=== PATIENT | male | born 1955 | race Caucasian/White ===

== ENCOUNTER → 2019-05-12 | Outpatient (CLI) | payer MEDICARE | END | disposition home or self-care (01) | LOC: LAB 14:10 → LAB SHORT 14:10 → LAB FUT 05-09 15:10 | DX: R10.9 Unspecified abdominal pain (principal) | CPT/HCPCS: 87338 ==

== ENCOUNTER → 2020-01-31 | Outpatient (CLI) | payer MEDICARE | END | disposition home or self-care (01) | LOC: LAB 18:32 → LAB SHORT 18:32 | DX: N39.0 Urinary tract infection, site not specified (principal) | CPT/HCPCS: 87086 ==

== ENCOUNTER 2020-09-09 00:24 | Day surgery (SDC) | payer MEDICARE | END 2020-09-09 22:57 | disposition home or self-care (01) | LOC: WOUND 00:24 | DX: E11.621 Type 2 diabetes mellitus with foot ulcer (principal); L97.415 Non-pressure chronic ulcer of right heel and midfoot with muscle involvement without evidence of necrosis; L97.422 Non-pressure chronic ulcer of left heel and midfoot with fat layer exposed; E11.59 Type 2 diabetes mellitus with other circulatory complications; E11.42 Type 2 diabetes mellitus with diabetic polyneuropathy; L03.115 Cellulitis of right lower limb | CPT/HCPCS: A9270; G0463 ==

== ENCOUNTER 2020-09-19 05:36 | Day surgery (SDC) | payer MEDICARE | END 2020-09-19 22:37 | disposition home or self-care (01) | LOC: WOUND 05:36 | DX: E11.621 Type 2 diabetes mellitus with foot ulcer (principal); L97.422 Non-pressure chronic ulcer of left heel and midfoot with fat layer exposed; L97.412 Non-pressure chronic ulcer of right heel and midfoot with fat layer exposed; E11.59 Type 2 diabetes mellitus with other circulatory complications; E11.42 Type 2 diabetes mellitus with diabetic polyneuropathy; S91.301D Unspecified open wound, right foot, subsequent encounter; X58.XXXD Exposure to other specified factors, subsequent encounter; L03.115 Cellulitis of right lower limb; I73.9 Peripheral vascular disease, unspecified; I87.2 Venous insufficiency (chronic) (peripheral) | CPT/HCPCS: 87071; 87075; 87205; A9270 ==

== ENCOUNTER 2020-09-23 00:39 | Day surgery (SDC) | payer MEDICARE | END 2020-09-23 22:58 | disposition home or self-care (01) | LOC: WOUND 00:39 | DX: E11.621 Type 2 diabetes mellitus with foot ulcer (principal); L97.415 Non-pressure chronic ulcer of right heel and midfoot with muscle involvement without evidence of necrosis; L97.429 Non-pressure chronic ulcer of left heel and midfoot with unspecified severity; E11.59 Type 2 diabetes mellitus with other circulatory complications; E11.42 Type 2 diabetes mellitus with diabetic polyneuropathy; S91.301D Unspecified open wound, right foot, subsequent encounter; X58.XXXD Exposure to other specified factors, subsequent encounter; L03.115 Cellulitis of right lower limb; I73.9 Peripheral vascular disease, unspecified; I87.2 Venous insufficiency (chronic) (peripheral) | CPT/HCPCS: A9270; G0463 ==

== ENCOUNTER 2020-09-30 01:06 | Day surgery (SDC) | payer MEDICARE | END 2020-09-30 23:13 | disposition home or self-care (01) | LOC: WOUND 01:06 | DX: E11.621 Type 2 diabetes mellitus with foot ulcer (principal); L97.412 Non-pressure chronic ulcer of right heel and midfoot with fat layer exposed; E11.59 Type 2 diabetes mellitus with other circulatory complications; E11.42 Type 2 diabetes mellitus with diabetic polyneuropathy; E11.51 Type 2 diabetes mellitus with diabetic peripheral angiopathy without gangrene; I87.2 Venous insufficiency (chronic) (peripheral); S91.301A Unspecified open wound, right foot, initial encounter; L03.115 Cellulitis of right lower limb | CPT/HCPCS: A9270 ==

== ENCOUNTER 2020-10-07 00:58 | Day surgery (SDC) | payer MEDICARE | END 2020-10-08 02:19 | disposition home or self-care (01) | LOC: WOUND 00:58 | DX: E11.621 Type 2 diabetes mellitus with foot ulcer (principal); L97.412 Non-pressure chronic ulcer of right heel and midfoot with fat layer exposed; E11.59 Type 2 diabetes mellitus with other circulatory complications; E11.42 Type 2 diabetes mellitus with diabetic polyneuropathy; S91.301D Unspecified open wound, right foot, subsequent encounter; X58.XXXD Exposure to other specified factors, subsequent encounter; L03.115 Cellulitis of right lower limb; I73.9 Peripheral vascular disease, unspecified; I87.2 Venous insufficiency (chronic) (peripheral) | CPT/HCPCS: A9270 ==

== ENCOUNTER 2020-10-14 00:50 | Day surgery (SDC) | payer MEDICARE | END 2020-10-14 23:33 | disposition home or self-care (01) | LOC: WOUND 00:50 | DX: E11.621 Type 2 diabetes mellitus with foot ulcer (principal); L97.415 Non-pressure chronic ulcer of right heel and midfoot with muscle involvement without evidence of necrosis; E11.59 Type 2 diabetes mellitus with other circulatory complications; E11.42 Type 2 diabetes mellitus with diabetic polyneuropathy; S91.301D Unspecified open wound, right foot, subsequent encounter; L03.115 Cellulitis of right lower limb; E11.51 Type 2 diabetes mellitus with diabetic peripheral angiopathy without gangrene; I87.2 Venous insufficiency (chronic) (peripheral) | CPT/HCPCS: A9270 ==

== ENCOUNTER 2020-10-28 07:00 | Day surgery (SDC) | payer MEDICARE | END 2020-10-28 23:00 | disposition home or self-care (01) | LOC: WOUND 07:00 | DX: E11.621 Type 2 diabetes mellitus with foot ulcer (principal); L97.412 Non-pressure chronic ulcer of right heel and midfoot with fat layer exposed; E11.59 Type 2 diabetes mellitus with other circulatory complications; E11.42 Type 2 diabetes mellitus with diabetic polyneuropathy; S91.301D Unspecified open wound, right foot, subsequent encounter; L03.115 Cellulitis of right lower limb; I73.9 Peripheral vascular disease, unspecified; I87.2 Venous insufficiency (chronic) (peripheral) ==

== ENCOUNTER 2020-11-11 02:51 | Day surgery (SDC) | payer MEDICARE | END 2020-11-11 23:03 | disposition home or self-care (01) | LOC: WOUND 02:51 | DX: E11.621 Type 2 diabetes mellitus with foot ulcer (principal); L97.412 Non-pressure chronic ulcer of right heel and midfoot with fat layer exposed; E11.59 Type 2 diabetes mellitus with other circulatory complications; E11.42 Type 2 diabetes mellitus with diabetic polyneuropathy; S91.301D Unspecified open wound, right foot, subsequent encounter; X58.XXXD Exposure to other specified factors, subsequent encounter; L03.115 Cellulitis of right lower limb; I73.9 Peripheral vascular disease, unspecified; I87.2 Venous insufficiency (chronic) (peripheral) | CPT/HCPCS: A9270 ==

== ENCOUNTER 2020-11-25 00:20 | Day surgery (SDC) | payer MEDICARE | END 2020-11-25 22:54 | disposition home or self-care (01) | LOC: WOUND 00:20 | DX: Z09 Encounter for follow-up examination after completed treatment for conditions other than malignant neoplasm (principal); Z86.31 Personal history of diabetic foot ulcer; E11.59 Type 2 diabetes mellitus with other circulatory complications; E11.42 Type 2 diabetes mellitus with diabetic polyneuropathy; E11.51 Type 2 diabetes mellitus with diabetic peripheral angiopathy without gangrene; L03.115 Cellulitis of right lower limb; I87.2 Venous insufficiency (chronic) (peripheral) | CPT/HCPCS: G0463 ==

== ENCOUNTER → 2020-11-28 | Outpatient (CLI) | payer MEDICARE ==
[2020-11-28 13:44] LABS: Albumin, Blood 3.4 g/dL (3.4-5.0); Anion Gap 8 mmol/L (6-16); Blood Urea Nitrogen 28 mg/dL (8-24); Bun/Creatinine Ratio 14.3 (12.0-20.0); CO2, Blood 24 mmol/L (21-32); Calcium, Blood 9.5 mg/dL (8.5-10.1); Chloride, Blood 106 mmol/L (98-108); Creatinine, Blood 1.96 mg/dL (0.60-1.20); Glomerular Filtration Rate 35 (60-); Glucose, Blood 199 mg/dL (70-99); Phosphorus, Blood 2.8 mg/dL (2.5-4.9); Potassium, Blood 4.1 mmol/L (3.5-5.5); Sodium, Blood 138 mmol/L (136-145)
== END | disposition home or self-care (01) ==
LOC: LAB 08:55 → LAB SHORT 08:55
PROVIDERS: Internal Medicine Nephrology
DX: N18.30 Chronic kidney disease, stage 3 unspecified (principal); D63.1 Anemia in chronic kidney disease
CPT/HCPCS: 36415; 80069; 85018

== ENCOUNTER → 2021-11-26 | Outpatient (CLI) | payer MEDICARE | END | disposition home or self-care (01) | LOC: LAB SHORT 12:00 → LAB 12:00 | DX: R30.0 Dysuria (principal) | CPT/HCPCS: 87077; 87086; 87186 ==

== ENCOUNTER → 2022-03-30 | Outpatient (CLI) | payer MEDICARE | END | disposition home or self-care (01) | LOC: LAB SHORT 12:00 → LAB 12:00 | DX: R30.0 Dysuria (principal) | CPT/HCPCS: 87086 ==

== ENCOUNTER 2024-11-02 06:32 | Inpatient (IN) | payer OTHER ==
[~2024-11-02] VITALS: Ht 193 cm; Wt 124.5 kg
[2024-11-02 06:47] LABS: pH Blood Venous 7.47 (7.34-7.37)
[2024-11-02 06:49] LABS: BASOPHILS ABSOLUTE AUTO 0.04 K/mm3 (0.00-0.23); BASOPHILS PERCENT AUTO 0 % (0-2); EOSINOPHILS ABSOLUTE AUTO 0.15 K/mm3 (0.00-0.68); EOSINOPHILS PERCENT AUTO 1 % (0-6); Hematocrit 40.1 % (37.0-53.0); Hemoglobin 13.4 g/dL (13.5-17.5); IMMATURE GRAN ABSOLUTE AUTO 0.09 K/mm3 (0.00-0.10); IMMATURE GRAN PERCENT AUTO 1 % (0-1); LYMPHOCYTES ABSOLUTE AUTO 2.72 K/mm3 (0.84-5.20); LYMPHOCYTES PERCENT AUTO 23 % (21-46); MONOCYTES ABSOLUTE AUTO 0.95 K/mm3 (0.16-1.47); MONOCYTES PERCENT AUTO 8 % (4-13); Mean Corpuscular HGB Conc 33.4 g/dL (31.5-36.5); Mean Corpuscular Volume 94 fL (80-100); NEUTROPHILS ABSOLUTE AUTO 8.03 K/mm3 (1.96-9.15); NEUTROPHILS PERCENT AUTO 67 % (41-73); NRBC ABSOLUTE 0.03 K/mm3 (0.00-0.02); NRBC Auto 0.3 /100 WBC (0.0-0.2); Platelet Count 190 K/mm3 (150-400); RDW Coefficient Variation 15.2 % (11.7-14.2); RDW Standard Deviation 51.6 fL (35.1-46.3)
[2024-11-02] MEDS ORDERED: Metoclopramide HCl 5MG / ML 2ML Vial IV ONE (06:55)
[2024-11-02] MEDS ORDERED: NS 1,000 ML IV SCH ×2 (06:55→08:05)
[2024-11-02 07:06] LABS: Alanine Aminotransfer (ALT/SGP 36.0 U/L (12-78); Albumin, Blood 3.3 g/dL (3.4-5.0); Albumin/Globulin Ratio 0.9 (0.8-1.8); Anion Gap 18.0 mmol/L (3-11); Aspartate Aminotrans (AST/SGOT 32.0 U/L (12-37); Bilirubin, Total 1.2 mg/dL (0.1-1.0); Blood Urea Nitrogen 42.0 mg/dL (8-24); CO2, Blood 20.0 mmol/L (21-32); Calcium, Blood 9.5 mg/dL (8.5-10.1); Chloride, Blood 106.0 mmol/L (98-108); Creatinine, Blood 4.14 mg/dL (0.60-1.20); Globulin, Blood 3.6 g/dL (2.2-4.0); Glucose, Blood 250.0 mg/dL (70-99); Potassium, Blood 4.8 mmol/L (3.5-5.5); Sodium, Blood 139.0 mmol/L (136-145); Total Protein, Blood 6.9 g/dL (6.4-8.2)
[2024-11-02] MEDS ORDERED: FentaNYL Citrate 50 MCG/ML 2 ML Injection IV ONE (07:30)
[2024-11-02 07:56] LABS: Influenza A, PCR NEGATIVE (NEGATIVE); Influenza B, PCR NEGATIVE (NEGATIVE); Resp Syncytial Virus, PCR NEGATIVE (NEGATIVE); SARS-Cov-2 (COVID-19) PCR, MMC NEGATIVE (NEGATIVE)
[2024-11-02] MEDS ORDERED: Ondansetron HCl 2 MG / ML 2ML Vial IV PRN (08:15)
[2024-11-02] MEDS ORDERED: HYDHCL25 PO (08:30)
[2024-11-02] MEDS ORDERED: OXYC10ER PO (08:32)
[2024-11-02] MEDS ORDERED: ALUMINUM H320 MG/5 M PO (08:32)
[2024-11-02] MEDS ORDERED: FREESTYLE LIBR1 EAC8 MC (08:32)
[2024-11-02] MEDS ORDERED: METPRE4 PO (08:33)
[2024-11-02] MEDS ORDERED: ALLO300 PO (08:33)
[2024-11-02] MEDS ORDERED: COLCHICINE0.6 MG PO (08:33)
[2024-11-02] MEDS ORDERED: INSULIN AS100 UNIT/8 SC (08:33)
[2024-11-02] MEDS ORDERED: TAMS.4ER PO (08:34)
[2024-11-02] MEDS ORDERED: FURO40 PO (08:34)
[2024-11-02] MEDS ORDERED: MELO7.5 PO (08:34)
[2024-11-02] MEDS ORDERED: METO50ER PO (08:34)
[2024-11-02] MEDS ORDERED: LOSA50 PO (08:35)
[2024-11-02] MEDS ORDERED: Insulin Regular 100 Unit/ML 1ML Dose SC ONE (09:00)
[2024-11-02] MEDS ORDERED: Enoxaparin 30 MG/0.3 ML SYR SC SCH (09:00)
[2024-11-02 09:34] LABS: C DIFFICILE DNA NEGATIVE (Negative)
[2024-11-02 11:33] VITALS: BP 134/103
[2024-11-02] MEDS ORDERED: Insulin Regular 100 UNIT/ML 10ML Vial SC SCH ×2 (12:00→21:00)
[2024-11-02 15:18] LABS: Campylobacter Sp Not Detected (NOT DETECT)
[2024-11-02 15:19] LABS: E. Coli O157 Not Detected (NOT DETECT); Enteroaggregative E. coli-EAEC Not Detected (NOT DETECT); Enteropathogenic E. coli-EPEC Not Detected (NOT DETECT); Enterotoxigenic E. coli-ETEC Not Detected (NOT DETECT); Salmonella Sp Not Detected (NOT DETECT); Shiga Toxin-prod E. coli-STEC Not Detected (NOT DETECT); Shigella/Enteroin E. coli-EIEC Not Detected (NOT DETECT); Vibrio Sp Not Detected (NOT DETECT)
[2024-11-02 15:33] VITALS: BP 141/76
[2024-11-02 19:17] VITALS: BP 142/50
--- NOTE | 2024-11-02 19:24 | NUR ---
END OF SHIFT SUMMARY: A&Ox4. PLEASANT AND COOPERATIVE WITH CARE. CALLS APPROPRIATELY AND IS ABLE TO ADVOCATE NEEDS EFFECTIVELY. CONTINENT OF BOWEL AND BLADDER; LBM TODAY. MULTIPLE LIQUID STOOLS SINCE ADMIT. GI PANEL AND C-DIFF NEGATIVE. CT SHOWS GASTROENTERITIS. AMBULATES INDEPENDENTLY c FWW @ BASELINE. MEDS WHOLE c FLUIDS. TOLERATING CLEAR LIQUID DIET FOR BOWEL REST. LR x2 LITERS GIVEN; THIRD LITER RUNNING @ 200mL/hr. GLUCOSE IMPROVING SINCE ADMIT. BED IN LOWEST POSITION, CALL LIGHT WITHIN REACH, ALL NEEDS MET. REPORT TO ONCOMING NURSE.
[2024-11-02] MEDS ORDERED: Insulin Glargine-Yfgn 100 Unit/mL 3 ML SYR SC SCH ×2 (21:00)
[2024-11-03 03:37] LABS: Source, Urine Clean Catch
[2024-11-03 03:42] VITALS: BP 116/82
[2024-11-03 04:11] LABS: Bilirubin, Urine Neg (Neg); Glucose Qualitative, Urine 1+ (Neg); Ketones, Urine Neg (Neg); Leukocyte Esterase, Urine Neg (Neg); Protein, Urine 2+ (Neg); Specific Gravity, Urine 1.015 (1.003-1.022); Urobilinogen, Urine NORM (Normal)
[2024-11-03 04:37] LABS: Color, Urine Yellow (P-Yellow)
[2024-11-03 04:38] LABS: Red Blood Cells, Urine 0-2 /hpf (0-2); White Blood Cells, Urine 0-2 /hpf (0-5)
[2024-11-03 05:38] LABS: BASOPHILS ABSOLUTE AUTO 0.03 K/mm3 (0.00-0.23); BASOPHILS PERCENT AUTO 1 % (0-2); EOSINOPHILS ABSOLUTE AUTO 0.65 K/mm3 (0.00-0.68); EOSINOPHILS PERCENT AUTO 10 % (0-6); Hematocrit 31.9 % (37.0-53.0); Hemoglobin 10.6 g/dL (13.5-17.5); IMMATURE GRAN ABSOLUTE AUTO 0.04 K/mm3 (0.00-0.10); IMMATURE GRAN PERCENT AUTO 1 % (0-1); LYMPHOCYTES ABSOLUTE AUTO 1.58 K/mm3 (0.84-5.20); LYMPHOCYTES PERCENT AUTO 25 % (21-46); MONOCYTES ABSOLUTE AUTO 0.78 K/mm3 (0.16-1.47); MONOCYTES PERCENT AUTO 12 % (4-13); Mean Corpuscular HGB Conc 33.2 g/dL (31.5-36.5); Mean Corpuscular Volume 96 fL (80-100); NEUTROPHILS ABSOLUTE AUTO 3.35 K/mm3 (1.96-9.15); NEUTROPHILS PERCENT AUTO 52 % (41-73); NRBC ABSOLUTE 0.00 K/mm3 (0.00-0.02); NRBC Auto 0.0 /100 WBC (0.0-0.2); Platelet Count 120 K/mm3 (150-400); RDW Coefficient Variation 15.4 % (11.7-14.2); RDW Standard Deviation 52.5 fL (35.1-46.3)
[2024-11-03 06:16] LABS: Alanine Aminotransfer (ALT/SGP 27.0 U/L (12-78); Albumin, Blood 2.3 g/dL (3.4-5.0); Albumin/Globulin Ratio 0.9 (0.8-1.8); Anion Gap 10.0 mmol/L (3-11); Aspartate Aminotrans (AST/SGOT 29.0 U/L (12-37); Bilirubin, Total 1.0 mg/dL (0.1-1.0); Blood Urea Nitrogen 30.0 mg/dL (8-24); CO2, Blood 22.0 mmol/L (21-32); Calcium, Blood 8.2 mg/dL (8.5-10.1); Chloride, Blood 112.0 mmol/L (98-108); Creatinine, Blood 3.46 mg/dL (0.60-1.20); Globulin, Blood 2.7 g/dL (2.2-4.0); Glucose, Blood 141.0 mg/dL (70-99); Potassium, Blood 3.4 mmol/L (3.5-5.5); Sodium, Blood 141.0 mmol/L (136-145); Total Protein, Blood 5.0 g/dL (6.4-8.2)
--- NOTE | 2024-11-03 06:38 | NUR ---
PT SLEPT INTERMITTENTLY DURING THE NIGHT. DENIES N/V, BUT WATERY DIARRHEA CONTINUES. PT STATES THE DIARRHEA EPISODES SEEM LESS INTENSE THAN THEY HAVE BEEN. PT OOB WITH FWW AND SBA- INCREASED WOB AND FATIGUE WHEN UP. IVF INFUSING PER ORDER. AT APPROX 0415, PT STATED HE FELT "WEIRD". NEURO CHECK WNL. BLOOD SUGAR CHECK WNL. PT STATES SENSATION OF "WEIRD" LESSENNED. BED IN LOWEST POSITION, CALL LIGHT WITHIN REACH, SIDERAILS UP X2.
[2024-11-03 07:22] VITALS: BP 104/64
[2024-11-03 15:03] VITALS: BP 129/81
--- NOTE | 2024-11-03 19:18 | NUR ---
assumed care of pt a/o x 4 vss no c/o pain, pt is uncomfortable and with a flat affect. pt GI tract still having issues with diarrhea and nausea. pt did higinio clr liquid diet without emesis, and had been requesting solid food. pt still feeling very discouraged about current condition
--- NOTE | 2024-11-03 19:21 | NUR ---
no change in pt condition, pt was able to higinio solid foods without emesis IVF LR infusing at 200ml. will cont to monitor, denies pain, no s/s of distress.
[2024-11-03 20:03] VITALS: BP 125/80
[2024-11-03] MEDS ORDERED: Morphine Sulfate 4 MG/1 ML Injection IV ONE (20:15)
[2024-11-04 03:22] VITALS: BP 133/83
--- NOTE | 2024-11-04 04:03 | NUR ---
SUMMARY: PT AOX4, COOPERATIVE. UP SBA W/FWW TO BATHROOM. REQUESTED IV PAIN MEDICATION FOR GENERALIZED PAIN AND BECAUSE HE STATES HE CANT KEEP PILLS DOWN. PT WAS CHANGED OVER FROM CLD TO RENAL DIET TODAY. ABLE TO TAKE ONE ORAL PILL AT BEDTIME WITH NO COMPLAINTS AND GIVEN PRN MORPHINE ONE TIME PER VETERINARY SURGEON PROVIDER. PT SLEEPING COMFORTABLY OVERNIGHT. NO BMS BUT VOIDING APPROPRIATELY. PT ABLE TO TURN SELF IN BED AND USE CALL LIGHT APPROPRIATELY.
[2024-11-04 05:39] LABS: BASOPHILS ABSOLUTE AUTO 0.01 K/mm3 (0.00-0.23); BASOPHILS PERCENT AUTO 0 % (0-2); EOSINOPHILS ABSOLUTE AUTO 0.70 K/mm3 (0.00-0.68); EOSINOPHILS PERCENT AUTO 15 % (0-6); Hematocrit 32.1 % (37.0-53.0); Hemoglobin 10.5 g/dL (13.5-17.5); IMMATURE GRAN ABSOLUTE AUTO 0.04 K/mm3 (0.00-0.10); IMMATURE GRAN PERCENT AUTO 1 % (0-1); LYMPHOCYTES ABSOLUTE AUTO 1.48 K/mm3 (0.84-5.20); LYMPHOCYTES PERCENT AUTO 31 % (21-46); MONOCYTES ABSOLUTE AUTO 0.51 K/mm3 (0.16-1.47); MONOCYTES PERCENT AUTO 11 % (4-13); Mean Corpuscular HGB Conc 32.7 g/dL (31.5-36.5); Mean Corpuscular Volume 96 fL (80-100); NEUTROPHILS ABSOLUTE AUTO 2.06 K/mm3 (1.96-9.15); NEUTROPHILS PERCENT AUTO 43 % (41-73); NRBC ABSOLUTE 0.00 K/mm3 (0.00-0.02); NRBC Auto 0.0 /100 WBC (0.0-0.2); Platelet Count 111 K/mm3 (150-400); RDW Coefficient Variation 15.8 % (11.7-14.2); RDW Standard Deviation 54.5 fL (35.1-46.3)
[2024-11-04 06:03] LABS: Anion Gap 8.0 mmol/L (3-11); Blood Urea Nitrogen 26.0 mg/dL (8-24); CO2, Blood 25.0 mmol/L (21-32); Calcium, Blood 8.2 mg/dL (8.5-10.1); Chloride, Blood 111.0 mmol/L (98-108); Creatinine, Blood 3.08 mg/dL (0.60-1.20); Glucose, Blood 108.0 mg/dL (70-99); Potassium, Blood 3.6 mmol/L (3.5-5.5); Sodium, Blood 140.0 mmol/L (136-145)
[2024-11-04 07:20] VITALS: BP 125/81
[2024-11-04 10:57] LABS: Thyroid Stimulating Hormone 1.53 uIU/mL (0.360-4.800)
[2024-11-04] MEDS ORDERED: Insulin Human Lispro 100 Units/ML 3ML Syringe SC SCH (11:30)
[2024-11-04 15:41] VITALS: BP 112/69
[2024-11-04 19:08] VITALS: BP 126/71
--- NOTE | 2024-11-04 19:16 | NUR ---
assumed care of pt pt a/o today but still in some distress upset stomach and an overwhelming feeling of discomfort. pt was enc to repostion and move in bed, pt able to higinio breakfast and lunch. Physical therapy in with pt today, and noted that pt would be needing possible SNF for rehab. pt up in chair new iv placed via ultrasound.
[2024-11-04 23:52] VITALS: BP 123/78
--- NOTE | 2024-11-05 00:33 | NUR ---
THIS RN CALLED PROVIDER REGARDING PATIENTS COMPLAINT OF CHEST PAIN AND LEFT SIDED PAIN TO BODY. PROVIDER ORDERED AN EKG. ICU CHARGE CAME TO ASSESS PT. EKG COMPLETED AND COMPARED WITH PRIOR. PT WAS STARTED ON TELEMETRY AT BEGINNING OF SHIFT DUE TO TACHYCARDIA. NO CALLS FROM TELEMETRY OTHER THAN WHEN PT GOT UP TO USE BATHROOM AND PULSE INCREASED TO 130 AND THEN RETURNED WHEN PATIENT WAS BACK IN BED. PT GIVEN TYLENOL FOR PAIN AT THIS TIME. STATES IT IS SLOWLY DECREASING IN INTENSITY NOW. LABS DRAWN. PROVIDER STATES THEY WOULD POSSIBLY DO AN ECHO IN THE MORNING AFTER COMING TO ASSESS THE PATIENT.
--- NOTE | 2024-11-05 02:28 | NUR ---
PATIENTS BNP CAME BACK ELEVATED. PROVIDER NOTIFIED NO NEW ORDERS AT THIS TIME.
[2024-11-05 02:50] LABS: BASOPHILS ABSOLUTE AUTO 0.01 K/mm3 (0.00-0.23); BASOPHILS PERCENT AUTO 0 % (0-2); EOSINOPHILS ABSOLUTE AUTO 0.64 K/mm3 (0.00-0.68); EOSINOPHILS PERCENT AUTO 13 % (0-6); Hematocrit 32.0 % (37.0-53.0); Hemoglobin 10.4 g/dL (13.5-17.5); IMMATURE GRAN ABSOLUTE AUTO 0.05 K/mm3 (0.00-0.10); IMMATURE GRAN PERCENT AUTO 1 % (0-1); LYMPHOCYTES ABSOLUTE AUTO 1.57 K/mm3 (0.84-5.20); LYMPHOCYTES PERCENT AUTO 31 % (21-46); MONOCYTES ABSOLUTE AUTO 0.61 K/mm3 (0.16-1.47); MONOCYTES PERCENT AUTO 12 % (4-13); Mean Corpuscular HGB Conc 32.5 g/dL (31.5-36.5); Mean Corpuscular Volume 96 fL (80-100); NEUTROPHILS ABSOLUTE AUTO 2.21 K/mm3 (1.96-9.15); NEUTROPHILS PERCENT AUTO 43 % (41-73); NRBC ABSOLUTE 0.00 K/mm3 (0.00-0.02); NRBC Auto 0.0 /100 WBC (0.0-0.2); Platelet Count 105 K/mm3 (150-400); RDW Coefficient Variation 15.5 % (11.7-14.2); RDW Standard Deviation 53.1 fL (35.1-46.3)
[2024-11-05 03:07] LABS: Alanine Aminotransfer (ALT/SGP 28.0 U/L (12-78); Albumin, Blood 2.3 g/dL (3.4-5.0); Albumin/Globulin Ratio 0.8 (0.8-1.8); Anion Gap 11.0 mmol/L (3-11); Aspartate Aminotrans (AST/SGOT 24.0 U/L (12-37); Bilirubin, Total 0.7 mg/dL (0.1-1.0); Blood Urea Nitrogen 24.0 mg/dL (8-24); CO2, Blood 24.0 mmol/L (21-32); Calcium, Blood 8.0 mg/dL (8.5-10.1); Chloride, Blood 110.0 mmol/L (98-108); Creatinine, Blood 2.8 mg/dL (0.60-1.20); Globulin, Blood 2.8 g/dL (2.2-4.0); Glucose, Blood 141.0 mg/dL (70-99); Potassium, Blood 3.8 mmol/L (3.5-5.5); Sodium, Blood 141.0 mmol/L (136-145); Total Protein, Blood 5.1 g/dL (6.4-8.2)
[2024-11-05 04:08] VITALS: BP 132/77
[2024-11-05 07:42] VITALS: BP 115/78
[2024-11-05] MEDS ORDERED: Enoxaparin 40 MG/0.4 ML SYR SC SCH (09:00)
[2024-11-05 11:22] VITALS: BP 118/72
[2024-11-05] MEDS ORDERED: Insulin Human Lispro 100 Units/ML 3ML Syringe SC SCH (11:30)
[2024-11-05 15:20] VITALS: BP 134/81
--- NOTE | 2024-11-05 16:22 | NUR ---
ASSUMED CARE OF PT. PT IS A/O X4 DOING A LITTLE BETTER TODAY PTIS NOW ON TELE AND RUNNING TACHY BETWEEN 80 TO 130 WHILE AMBULATING. PT COMPLAINTS OF GENERALIZED WEAKNESS AND HEAVINESS, IS AWARE AND WILL BE RUNNING ADDITIONAL TEST. ECHO TO BE DONE THIS EVENING. PT CONT TO AMB WITH FWW AND ONE PERSON ASSIST. CALLS APPROPRIATLY
[2024-11-05] MEDS ORDERED: Insulin Glargine-Yfgn 100 Unit/mL 3 ML SYR SC SCH (18:00)
[2024-11-05 19:24] VITALS: BP 127/52
[2024-11-05 22:50] VITALS: BP 142/85
[2024-11-06 03:55] VITALS: BP 133/89
--- NOTE | 2024-11-06 05:00 | NUR ---
SHIFT SUMMARY PATIENT IS ALERT AND ORIENTED. PATIENT HAS HAD NO ACUTE EVENTS THIS SHIFT. VITAL SIGNS REVIEWED. PATIENT HAS REPORTED PAIN THIS SHIFT. PATIENT HAS HAD TACHYCARDIA ON TELE MONITORING WHEN AMBULATING. PATIENT HAS HAD NO COMPLAINTS OF SOB, NAUSEA, OR VOMITTING. BED IN LOCKED AND LOWEST POSITION. CALL LIGHT IN PLACE.
[2024-11-06 06:15] LABS: BASOPHILS ABSOLUTE AUTO 0.01 K/mm3 (0.00-0.23); BASOPHILS PERCENT AUTO 0 % (0-2); EOSINOPHILS ABSOLUTE AUTO 0.64 K/mm3 (0.00-0.68); EOSINOPHILS PERCENT AUTO 13 % (0-6); Hematocrit 33.6 % (37.0-53.0); Hemoglobin 10.6 g/dL (13.5-17.5); IMMATURE GRAN ABSOLUTE AUTO 0.04 K/mm3 (0.00-0.10); IMMATURE GRAN PERCENT AUTO 1 % (0-1); LYMPHOCYTES ABSOLUTE AUTO 1.75 K/mm3 (0.84-5.20); LYMPHOCYTES PERCENT AUTO 34 % (21-46); MONOCYTES ABSOLUTE AUTO 0.70 K/mm3 (0.16-1.47); MONOCYTES PERCENT AUTO 14 % (4-13); Mean Corpuscular HGB Conc 31.5 g/dL (31.5-36.5); Mean Corpuscular Volume 99 fL (80-100); NEUTROPHILS ABSOLUTE AUTO 1.94 K/mm3 (1.96-9.15); NEUTROPHILS PERCENT AUTO 38 % (41-73); NRBC ABSOLUTE 0.00 K/mm3 (0.00-0.02); NRBC Auto 0.0 /100 WBC (0.0-0.2); RDW Coefficient Variation 15.9 % (11.7-14.2); RDW Standard Deviation 56.8 fL (35.1-46.3)
[2024-11-06 06:34] LABS: Alanine Aminotransfer (ALT/SGP 30.0 U/L (12-78); Albumin, Blood 2.3 g/dL (3.4-5.0); Albumin/Globulin Ratio 0.8 (0.8-1.8); Anion Gap 8.0 mmol/L (3-11); Aspartate Aminotrans (AST/SGOT 32.0 U/L (12-37); Bilirubin, Total 1.0 mg/dL (0.1-1.0); Blood Urea Nitrogen 21.0 mg/dL (8-24); CO2, Blood 22.0 mmol/L (21-32); Calcium, Blood 8.0 mg/dL (8.5-10.1); Chloride, Blood 110.0 mmol/L (98-108); Creatinine, Blood 2.39 mg/dL (0.60-1.20); Globulin, Blood 3.0 g/dL (2.2-4.0); Glucose, Blood 124.0 mg/dL (70-99); Potassium, Blood 4.3 mmol/L (3.5-5.5); Sodium, Blood 136.0 mmol/L (136-145); Total Protein, Blood 5.3 g/dL (6.4-8.2)
[2024-11-06 06:50] LABS: Platelet Count 93 K/mm3 (150-400)
[2024-11-06 08:00] VITALS: BP 128/87
[2024-11-06 12:19] VITALS: BP 131/80
[2024-11-06 16:33] VITALS: BP 129/56
--- NOTE | 2024-11-06 16:47 | NUR ---
SHIFT SUMMARY PT WORKED WITH PHYSICAL, SPEECH, AND OCCUPATIONAL THERPAY TODAY. PT UP TO RECLINER FOR MOST OF THE DAY. TOLERATING AMBULATION TO THE BATHROOM AND BACK. AWAITING PLACEMENT AT [facility] PER DC PLANNING. PT TELEMETRY RUNNING SINUS TACH T/O THE DAY. RUNNING IN THE 120S AT REST AND INCREASES TO 130-140S WITH EXERTION. DR ROSALES NOTIFIED OF THIS RATE DURING ROUNDS. NO OTHER ACUTE CHANGES IN ASSESSMENT AT THIS TIME. VS REVIEWED. CALL LIGHT IN REACH. PLAN TO TRANSFER TO ROOM 327 PRIOR TO SHIFT CHANGE.
--- NOTE | 2024-11-06 17:18 | NUR ---
TRANSFER TO 327. REPORT GIVEN TO YOGI MARK.
--- NOTE | 2024-11-06 18:09 | NUR ---
SHIFT SUMMARY PT TRANSFERED FROM 346 THIS SHIFT TO ROOM 327. PT NOTED TO BE A&OX4 AND MAKES NEEDS KNOWN, PT IS A SBA WITH TRANSFERS. PT CONT WITH TELE NOTED TO BE SINUS TACH IN 120S AT REST.
[2024-11-06 19:48] VITALS: BP 174/88
[2024-11-07] VITALS (10 sets, daily range): BP systolic 74–168; BP diastolic 51–93
[2024-11-07 05:30] LABS: BASOPHILS ABSOLUTE AUTO 0.01 K/mm3 (0.00-0.23); BASOPHILS PERCENT AUTO 0 % (0-2); EOSINOPHILS ABSOLUTE AUTO 0.70 K/mm3 (0.00-0.68); EOSINOPHILS PERCENT AUTO 12 % (0-6); Hematocrit 32.2 % (37.0-53.0); Hemoglobin 10.6 g/dL (13.5-17.5); IMMATURE GRAN ABSOLUTE AUTO 0.04 K/mm3 (0.00-0.10); IMMATURE GRAN PERCENT AUTO 1 % (0-1); LYMPHOCYTES ABSOLUTE AUTO 1.98 K/mm3 (0.84-5.20); LYMPHOCYTES PERCENT AUTO 33 % (21-46); MONOCYTES ABSOLUTE AUTO 0.92 K/mm3 (0.16-1.47); MONOCYTES PERCENT AUTO 15 % (4-13); Mean Corpuscular HGB Conc 32.9 g/dL (31.5-36.5); Mean Corpuscular Volume 96 fL (80-100); NEUTROPHILS ABSOLUTE AUTO 2.43 K/mm3 (1.96-9.15); NEUTROPHILS PERCENT AUTO 40 % (41-73); NRBC ABSOLUTE 0.00 K/mm3 (0.00-0.02); NRBC Auto 0.0 /100 WBC (0.0-0.2); Platelet Count 121 K/mm3 (150-400); RDW Coefficient Variation 15.8 % (11.7-14.2); RDW Standard Deviation 55.1 fL (35.1-46.3)
[2024-11-07 05:57] LABS: Alanine Aminotransfer (ALT/SGP 30.0 U/L (12-78); Albumin, Blood 2.5 g/dL (3.4-5.0); Albumin/Globulin Ratio 0.8 (0.8-1.8); Anion Gap 6.0 mmol/L (3-11); Aspartate Aminotrans (AST/SGOT 23.0 U/L (12-37); Bilirubin, Total 1.1 mg/dL (0.1-1.0); Blood Urea Nitrogen 25.0 mg/dL (8-24); CO2, Blood 27.0 mmol/L (21-32); Calcium, Blood 8.4 mg/dL (8.5-10.1); Chloride, Blood 107.0 mmol/L (98-108); Creatinine, Blood 2.59 mg/dL (0.60-1.20); Globulin, Blood 3.0 g/dL (2.2-4.0); Glucose, Blood 148.0 mg/dL (70-99); Potassium, Blood 4.0 mmol/L (3.5-5.5); Sodium, Blood 136.0 mmol/L (136-145); Total Protein, Blood 5.5 g/dL (6.4-8.2)
--- NOTE | 2024-11-07 06:18 | NUR ---
Shift Summary Pt on tele, SR to ST, tachy up to 160s with ambulation and activity. Pt c/o of bad bloating/gas abdominal discomfort. Pt states scheduled famotidine did help with abd discomfort. He is 1 assist with FWW to BR. Pt AOx4, calls appropriatly. Slept t/o most of the night.
[2024-11-07] MEDS ORDERED: Metoprolol Tartrate 1 MG/ML 5 ML VIAL IV ONE (10:00)
[2024-11-07] MEDS ORDERED: Metoprolol Tartrate 1 MG/ML 5 ML VIAL IV PRN (10:00)
--- NOTE | 2024-11-07 12:42 | NUR ---
1155 NOTIFIED BY JOSE MANUEL [employer] CONSULTANT SARAH PATIENT HR 210-220. IMMEDIATELY TO PTS ROOM, PT RETURNING FROM AMBULATING TO RESTROOM AND IS STANDING UP PERFORMING ARM EXCERCISES WITH OT.BP CHECKED AND IS 74/51 THOUGH BLOOD PRESSURE CUFF HAD PUMPED UP AND RELEASED 3 TIMES SEARCHING FOR BP SO ACCURACY OF THIS BP UNKNOWN. PT REPORTS SLIGHT CHEST PRESSURE AND HAS A HEADACHE. PT ASSISTED TO BED WITH 2 PERSON AND GAIT BELT. VS RECHECKED ON OPPOSITE LOWER ARM AND IS 141/74. DR ROPER PRESENT AT BEDSIDE AND AWARE OF CHANGE IN PSTIENT VITAL SIGNS. HR CURRENTLY 11. PER TELE HR WAS 210-220 FOR A PERIOD OF [address] ROPER NEW ORDERS WILL BE PLACED. PT BEDSIDE BHAVANI CASTRO NOTIFIED OF CHANGE IN PATIENT STATUS
[2024-11-07 15:34] LABS: Anion Gap 9.0 mmol/L (3-11); Blood Urea Nitrogen 25.0 mg/dL (8-24); CO2, Blood 25.0 mmol/L (21-32); Calcium, Blood 8.7 mg/dL (8.5-10.1); Chloride, Blood 105.0 mmol/L (98-108); Creatinine, Blood 2.4 mg/dL (0.60-1.20); Glucose, Blood 140.0 mg/dL (70-99); Potassium, Blood 3.7 mmol/L (3.5-5.5); Sodium, Blood 135.0 mmol/L (136-145)
--- NOTE | 2024-11-07 18:11 | NUR ---
DAY SUMMARY A&OX4, BP STABLE, HR HAS BEEN ST T/O SHIFT (110'S), 4 EPISODES OF SUSTAINING IN LOW 200'S, HOME DOSE OF METOP STARTED THIS SHIFT, PT HAS BEEN BEDRESTING USING URINAL AT BEDSIDE, MAINTAINING HR IN 110'S, MEDICATED PER JUN FOR PAIN, BEDRESTING AT THIS TIME, CALL LIGHT IN REACH, WILL CONT TO MONITOR.
[2024-11-08 03:03] VITALS: BP 131/80
[2024-11-08 04:23] LABS: BASOPHILS ABSOLUTE AUTO 0.02 K/mm3 (0.00-0.23); BASOPHILS PERCENT AUTO 0 % (0-2); EOSINOPHILS ABSOLUTE AUTO 0.72 K/mm3 (0.00-0.68); EOSINOPHILS PERCENT AUTO 13 % (0-6); Hematocrit 30.9 % (37.0-53.0); Hemoglobin 10.1 g/dL (13.5-17.5); IMMATURE GRAN ABSOLUTE AUTO 0.03 K/mm3 (0.00-0.10); IMMATURE GRAN PERCENT AUTO 1 % (0-1); LYMPHOCYTES ABSOLUTE AUTO 2.13 K/mm3 (0.84-5.20); LYMPHOCYTES PERCENT AUTO 38 % (21-46); MONOCYTES ABSOLUTE AUTO 0.91 K/mm3 (0.16-1.47); MONOCYTES PERCENT AUTO 16 % (4-13); Mean Corpuscular HGB Conc 32.7 g/dL (31.5-36.5); Mean Corpuscular Volume 96 fL (80-100); NEUTROPHILS ABSOLUTE AUTO 1.85 K/mm3 (1.96-9.15); NEUTROPHILS PERCENT AUTO 33 % (41-73); NRBC ABSOLUTE 0.00 K/mm3 (0.00-0.02); NRBC Auto 0.0 /100 WBC (0.0-0.2); Platelet Count 129 K/mm3 (150-400); RDW Coefficient Variation 15.8 % (11.7-14.2); RDW Standard Deviation 54.2 fL (35.1-46.3)
[2024-11-08 04:38] LABS: Anion Gap 9.0 mmol/L (3-11); Blood Urea Nitrogen 26.0 mg/dL (8-24); CO2, Blood 25.0 mmol/L (21-32); Calcium, Blood 8.4 mg/dL (8.5-10.1); Chloride, Blood 104.0 mmol/L (98-108); Creatinine, Blood 2.55 mg/dL (0.60-1.20); Glucose, Blood 210.0 mg/dL (70-99); Potassium, Blood 3.7 mmol/L (3.5-5.5); Sodium, Blood 134.0 mmol/L (136-145)
--- NOTE | 2024-11-08 05:10 | NUR ---
NIGHT SUMMARY: PT AOX4, ON RA, USING URINAL AT BEDSIDE OVERNIGHT. PT RECEIVED PAIN MEDICATION X2 PER EMAR. HYDROCORTISONE CREAM WAS ORDERED THIS AM PRN TWICE A DAY DUE TO ITCHING. NO CALLS FROM CHANNEL DEVELOPMENT MANAGER OVERNIGHT. CALL LIGHT WITHIN REACH AND BED IN LOW POSITION.
[2024-11-08 08:40] VITALS: BP 108/72
[2024-11-08 14:42] LABS: Anion Gap 9.0 mmol/L (3-11); Blood Urea Nitrogen 28.0 mg/dL (8-24); CO2, Blood 26.0 mmol/L (21-32); Calcium, Blood 8.5 mg/dL (8.5-10.1); Chloride, Blood 105.0 mmol/L (98-108); Creatinine, Blood 2.62 mg/dL (0.60-1.20); Glucose, Blood 106.0 mg/dL (70-99); Potassium, Blood 3.6 mmol/L (3.5-5.5); Sodium, Blood 136.0 mmol/L (136-145)
--- NOTE | 2024-11-08 15:24 | NUR ---
DAY SUMMARY VSS, HR STABLE ON TELE, PT CONTINUES TO C/O PAIN/DIFFICULTY WITH STARTING URINE STREAM, FLOMAX DOSE INCREASED THIS SHIFT, BEDRESTING AT THIS TIME, CALL LIGHT IN REACH, WILL CONT TO MONITOR.
[2024-11-08 16:51] VITALS: BP 114/65
[2024-11-08 19:15] VITALS: BP 137/112
[2024-11-08 23:13] VITALS: BP 133/112
[2024-11-09] VITALS (10 sets, daily range): BP systolic 91–114; BP diastolic 53–91
--- NOTE | 2024-11-09 05:21 | NUR ---
NIGHT SUMMARY: BED BATH GIVEN AND LINENS CHANGED. PT SAT IN CHAIR WHILE BEDDING WAS CHANGED AND THERE WAS NO CALL FROM TELEMETRY ABOUT INCREASED HEART RATE. PT USING URINAL AT BEDSIDE. PT RECEIVED OXYCODONE X2 PER EMAR, DOSE INCREASED OVERNIGHT. TYLENOL RECEIVED X2. BED IN LOW POSITION AND CALL LIGHT WITHIN REACH.
[2024-11-09 06:16] LABS: Anion Gap 11.0 mmol/L (3-11); Blood Urea Nitrogen 35.0 mg/dL (8-24); CO2, Blood 24.0 mmol/L (21-32); Calcium, Blood 8.3 mg/dL (8.5-10.1); Chloride, Blood 102.0 mmol/L (98-108); Creatinine, Blood 2.9 mg/dL (0.60-1.20); Glucose, Blood 119.0 mg/dL (70-99); Potassium, Blood 4.1 mmol/L (3.5-5.5); Sodium, Blood 133.0 mmol/L (136-145)
--- NOTE | 2024-11-09 18:44 | NUR ---
DAY SUMMARY BP'S SOFT THIS AM, UNTIL NOON VS (LAST BP 114/70 @1700), MEDICATED FOR PAIN X1, UP TO CHAIR MOST OF SHIFT, WILL CONT TO MONITOR
[2024-11-09] MEDS ORDERED: Polyethylene Glycol 3350 17 gm PO ONE (20:55)
[2024-11-10 03:14] VITALS: BP 101/53
--- NOTE | 2024-11-10 04:50 | NUR ---
FOOD COUNTER ATTENDANT: PT AOX4 BUT GETTING SLIGHTLY CONFUSED ABOUT TIME OF DAY. PT HAS BEEN UP TO BATHROOM AND BACK X2 THIS SHIFT. SLIGHTLY UNSTEADY GAIT, 1 ASSIST W/FWW. ABLE TO HAVE SMALL BOWEL MOVEMENT. MIRALAX STARTED LAST EVENING AND ORDERED FOR DAILY PER PROVIDER. PAIN MEDS GIVEN PER EMAR. CALL LIGHT WITHIN REACH, ABLE TO MAKE NEEDS KNOWN.
[2024-11-10 06:45] LABS: BASOPHILS ABSOLUTE AUTO 0.02 K/mm3 (0.00-0.23); BASOPHILS PERCENT AUTO 0 % (0-2); EOSINOPHILS ABSOLUTE AUTO 0.68 K/mm3 (0.00-0.68); EOSINOPHILS PERCENT AUTO 14 % (0-6); Hematocrit 28.6 % (37.0-53.0); Hemoglobin 9.4 g/dL (13.5-17.5); IMMATURE GRAN ABSOLUTE AUTO 0.03 K/mm3 (0.00-0.10); IMMATURE GRAN PERCENT AUTO 1 % (0-1); LYMPHOCYTES ABSOLUTE AUTO 1.75 K/mm3 (0.84-5.20); LYMPHOCYTES PERCENT AUTO 36 % (21-46); MONOCYTES ABSOLUTE AUTO 0.72 K/mm3 (0.16-1.47); MONOCYTES PERCENT AUTO 15 % (4-13); Mean Corpuscular HGB Conc 32.9 g/dL (31.5-36.5); Mean Corpuscular Volume 95 fL (80-100); NEUTROPHILS ABSOLUTE AUTO 1.72 K/mm3 (1.96-9.15); NEUTROPHILS PERCENT AUTO 35 % (41-73); NRBC ABSOLUTE 0.00 K/mm3 (0.00-0.02); NRBC Auto 0.0 /100 WBC (0.0-0.2); Platelet Count 146 K/mm3 (150-400); RDW Coefficient Variation 15.3 % (11.7-14.2); RDW Standard Deviation 53.1 fL (35.1-46.3)
[2024-11-10 07:04] LABS: Albumin, Blood 2.2 g/dL (3.4-5.0); Anion Gap 8 mmol/L (3-11); Blood Urea Nitrogen 39 mg/dL (8-24); CO2, Blood 26 mmol/L (21-32); Calcium, Blood 8.4 mg/dL (8.5-10.1); Chloride, Blood 104 mmol/L (98-108); Creatinine, Blood 2.74 mg/dL (0.60-1.20); Glucose, Blood 141 mg/dL (70-99); Phosphorus, Blood 4.3 mg/dL (2.5-4.9); Potassium, Blood 3.9 mmol/L (3.5-5.5); Sodium, Blood 134 mmol/L (136-145)
[2024-11-10 07:09] VITALS: BP 144/119
[2024-11-10] MEDS ORDERED: Polyethylene Glycol 3350 17 gm PO SCH (09:00)
[2024-11-10 11:33] VITALS: BP 114/69
[2024-11-10 15:47] VITALS: BP 120/108
[2024-11-10 15:55] VITALS: BP 102/55
--- NOTE | 2024-11-10 17:43 | NUR ---
SHIFT SUMMARY: PATIENT MEDICATED FOR GENERALIZED PAIN PER EMANahomi abdi MOD EFFECT. PATIENT TELE DC'D PER ORDER. PATIENT HAD ONE LARGE BROWN BM THIS SHIFT. PATIENT HAS ORDER Q8 BLADDER SCAN. PATIENT WAS BLADDER SCAN AT 1055 c 99 MLS RETENTION POST VOID. AT 1802 BLADDER SCAN 604 MLS IN BLADDER. PATIENT ATTEMPTED TO USE URINAL BUT NOTHING COMING OUT. PATIENT STATES " I DON'T FEEL LIKE I HAVE TO URINATE RIGHT NOW, BUT I WILL TRY AGAIN AFTER I EAT MY DINNER." NOTIFIED DR. OSCAR abdi THIS CONCERN. PER DR. MOORE TO [facility] AND TRIED AGAIN IN COUPLE OF HOURS. PATIENT A/OX4, PLEASANT AND COOPERATIVE c CARE, CALLS APPROPRIATELY AND ABLE TO MAKE NEEDS KNOWN. VITAL SIGNS REVIEWED. CALL LIGHT IN REACH.
[2024-11-10 19:50] VITALS: BP 111/89
[2024-11-11 02:59] VITALS: BP 122/64
--- NOTE | 2024-11-11 03:01 | NUR ---
SHIFT SUMMARY NO ACUTE EVENTS DURING THIS SHIFT. PT VOIDING WELL IN THE RESTROOM. BLADDER SCAN @2014 SHOWING 0MLS POST-VOID. 1-PERSON ASSIST WITH FWW AND GB TO THE RESTROOM. PT IS WEAK, UNSTEADY GAIT. MEDICATED PER EMAR FOR C/O 6-10/26 ALL OVER BODY PAIN. +2 EDEMA LE'S, REDDNESS NOTED. BM DURING THIS SHIFT. PT REPORTS EXCITED TO D/C TO [facility] TODAY. BED AT THE LOWEST POSITION, CALL LIGHT W/I REACH. PT IS ABLE TO MAKE HIS NEEDS KNOWN AND IS COOPERATIVE WITH CARE.
[2024-11-11 06:08] LABS: BASOPHILS ABSOLUTE AUTO 0.01 K/mm3 (0.00-0.23); BASOPHILS PERCENT AUTO 0 % (0-2); EOSINOPHILS ABSOLUTE AUTO 0.55 K/mm3 (0.00-0.68); EOSINOPHILS PERCENT AUTO 12 % (0-6); Hematocrit 28.7 % (37.0-53.0); Hemoglobin 9.5 g/dL (13.5-17.5); IMMATURE GRAN ABSOLUTE AUTO 0.03 K/mm3 (0.00-0.10); IMMATURE GRAN PERCENT AUTO 1 % (0-1); LYMPHOCYTES ABSOLUTE AUTO 1.77 K/mm3 (0.84-5.20); LYMPHOCYTES PERCENT AUTO 39 % (21-46); MONOCYTES ABSOLUTE AUTO 0.66 K/mm3 (0.16-1.47); MONOCYTES PERCENT AUTO 15 % (4-13); Mean Corpuscular HGB Conc 33.1 g/dL (31.5-36.5); Mean Corpuscular Volume 95 fL (80-100); NEUTROPHILS ABSOLUTE AUTO 1.51 K/mm3 (1.96-9.15); NEUTROPHILS PERCENT AUTO 33 % (41-73); NRBC ABSOLUTE 0.00 K/mm3 (0.00-0.02); NRBC Auto 0.0 /100 WBC (0.0-0.2); Platelet Count 160 K/mm3 (150-400); RDW Coefficient Variation 15.1 % (11.7-14.2); RDW Standard Deviation 52.5 fL (35.1-46.3)
[2024-11-11 06:46] LABS: Albumin, Blood 2.3 g/dL (3.4-5.0); Anion Gap 7 mmol/L (3-11); Blood Urea Nitrogen 39 mg/dL (8-24); CO2, Blood 26 mmol/L (21-32); Calcium, Blood 8.3 mg/dL (8.5-10.1); Chloride, Blood 105 mmol/L (98-108); Creatinine, Blood 2.58 mg/dL (0.60-1.20); Glucose, Blood 126 mg/dL (70-99); Phosphorus, Blood 3.7 mg/dL (2.5-4.9); Potassium, Blood 3.8 mmol/L (3.5-5.5); Sodium, Blood 134 mmol/L (136-145)
[2024-11-11 07:50] VITALS: BP 130/73
[2024-11-11] MEDS ORDERED: MIRALAX17 GM PO (11:23)
[2024-11-11] MEDS ORDERED: SENN187 PO (11:24)
[2024-11-11] MEDS ORDERED: PREG25 PO (11:25)
--- NOTE | 2024-11-11 12:36 | NUR ---
REPORT CALLED TO KATARZYNA NURSE. AWAITING TRANSPORTATION.
--- NOTE | 2024-11-11 14:00 | NUR ---
PT DISCHARGED TO [facility] VIA WHEELCHAIR TRANSPORT. FAMILY CALLED AND NOTIFIED OF TRANSFER.
== END 2024-11-11 15:14 | DRG 683 ==
LOC: ER 06:32 → MEDS 08:22
PROVIDERS: Emergency Medicine; Student in an Organized Health Care Education/Training Program; ADMIT Internal Medicine
DX: N17.9 Acute kidney failure, unspecified (principal); E87.20 Acidosis, unspecified; R65.10 Systemic inflammatory response syndrome (SIRS) of non-infectious origin without acute organ dysfunction; E86.0 Dehydration; E11.65 Type 2 diabetes mellitus with hyperglycemia; I12.9 Hypertensive chronic kidney disease with stage 1 through stage 4 chronic kidney disease, or unspecified chronic kidney disease; E11.22 Type 2 diabetes mellitus with diabetic chronic kidney disease; N18.32 Chronic kidney disease, stage 3b; Z66 Do not resuscitate; R13.12 Dysphagia, oropharyngeal phase; D63.1 Anemia in chronic kidney disease; G89.29 Other chronic pain; M25.511 Pain in right shoulder; L30.9 Dermatitis, unspecified; A08.4 Viral intestinal infection, unspecified; E11.42 Type 2 diabetes mellitus with diabetic polyneuropathy; E66.9 Obesity, unspecified; R07.9 Chest pain, unspecified; N40.1 Benign prostatic hyperplasia with lower urinary tract symptoms; R33.8 Other retention of urine; K59.00 Constipation, unspecified; Z68.34 Body mass index [BMI] 34.0-34.9, adult; Z79.4 Long term (current) use of insulin; Z79.899 Other long term (current) drug therapy
CPT/HCPCS: 36415; 71046; 74176; 80048; 80053; 80069; 81001; 82010; 82550; 82570; 82607; 82746; 82803; 82947; 83036; 83605; 83880; 84300; 84443; 84484; 85025; 86140; 87040; 87493; 87507; 87637; 92610; 93005; 93010; 93306; 96361; 96374; 96375; 97110; 97116; 97162; 97165; 97530; 97535; 99285-25; A9270; J1650; J1815; J1938; J2270; J2765; J3010; J7030; J7120

== ENCOUNTER 2025-03-01 16:22 | Inpatient (IN) | payer OTHER | END 2025-03-03 16:00 | disposition home or self-care (01) | DRG 640 | LOC: ER 16:22 → PCU 16:23 | PROVIDERS: ADMIT Student in an Organized Health Care Education/Training Program | DX: E83.42 Hypomagnesemia (principal); I21.4 Non-ST elevation (NSTEMI) myocardial infarction; I47.10 Supraventricular tachycardia, unspecified; I12.9 Hypertensive chronic kidney disease with stage 1 through stage 4 chronic kidney disease, or unspecified chronic kidney disease; E11.22 Type 2 diabetes mellitus with diabetic chronic kidney disease; E11.65 Type 2 diabetes mellitus with hyperglycemia; Z66 Do not resuscitate; E86.0 Dehydration; G89.29 Other chronic pain; N40.0 Benign prostatic hyperplasia without lower urinary tract symptoms; N18.30 Chronic kidney disease, stage 3 unspecified; L30.9 Dermatitis, unspecified; I95.1 Orthostatic hypotension; M25.511 Pain in right shoulder; Z79.4 Long term (current) use of insulin; Z79.899 Other long term (current) drug therapy ==